=== PATIENT | female | born 1995 | race Caucasian/White ===

== ENCOUNTER 2024-02-08 01:47 | Inpatient (IN) | payer BC ==
[2024-02-08] VITALS (66 sets, daily range): BP systolic 72–186; BP diastolic 41–175; PULSE 61–104; TEMP 97–98.4
[~2024-02-08] VITALS: Ht 162.6 cm; Wt 83.6 kg
--- NOTE | 2024-02-08 02:00 | NUR ---
G2L1. 40-4. Wheeled to LDR 3 with spouse. Clean gown on. EFM and TOCO explained and applied. Pt states she has been kedar for the last 4 hours. Denies leaking of fluids or vaginal bleeding. Reports good movement. Pt states this is her second delivery and that she had a with her first. Pt states "I pushed for 5 hours with my last baby but she was bernie side up." Pt also reports that the baby was 9lbs and that she had to recieved 2 blood transfussions due to blood loss. Pt requesting TOLAC. Plan of care explained to pt. Pt verbalized her understanding. 0225: called and updated on pt's status. See physican notification. Order received. 0230: Pt updated on providers new orders. Pt okay with getting an epidural at this time. Educated pt on not recommending TOLAC but that she is willing to watch her and baby. Pt verbalized her understanding and wanting to continue with TOLAC at this time. 0250: IV started and labs obtained via IV site. LR bolus infusing without difficutly.
[2024-02-08] MEDS ORDERED: LR & Oxytocin 500 ML IV SCH (02:45)
[2024-02-08] MEDS ORDERED: LR 1,000 ML IV SCH (02:45)
[2024-02-08] MEDS ORDERED: IRON 27 MG PO (03:00)
[2024-02-08 03:19] LABS: BASO # 0.1 K/mm3 (0.0-0.2); BASO % 0.3 % (0.0-2.0); EOS # 0.2 K/mm3 (0.0-0.7); EOS % 1.2 % (0.0-4.0); GRAN % 74.9 % (42.2-75.2); LYMPH # 2.5 K/mm3 (1.2-3.4); LYMPH % 16.7 % (20.0-51.0); MEAN CELL VOLUME 85 fl (80.0-100.0); MEAN CORPUSCULAR HEMOGLOBIN 28 pg (27-31); MEAN CORPUSCULAR HGB CONC 34 g/dl (33.0-37.0); MEAN PLATELET VOLUME 11.2 fl (7.4-10.4); MONO # 0.9 K/mm3 (0.1-0.6); MONO % 6.2 % (1.7-9.3); PLATELET COUNT 227 K/mm3 (130-400); RED BLOOD COUNT 3.87 M/mm3 (4.10-5.30); REDCELL DISTRIBUTION WIDTH-CV 15.3 % (11.5-14.5)
[2024-02-08 03:20] LABS: HEMATOCRIT 32.7 % (37.0-47.0)
[2024-02-08] MEDS ORDERED: ROPivacaine PF 0.2% 200 ML IV ONE (03:44)
--- NOTE | 2024-02-08 03:45 | NUR ---
Hernesto VILLANUEVA at bedside for epidural placement. Pt assisted to edge of bed and procedure and risks explained by Hernseto VILLANUEVA. Difficulty tracing FHR due to maternal position. 0357: BP 85/82. Hernesto notified and aware. 0358: Test dose administered by Hernesto VILLANUEVA. See anesthesia records. 0405: Pt assisted to wedge right position per request. Plan of care and safety precautions explained to pt who verbalizes her understanding. Call light within reach.
[2024-02-08] MEDS ORDERED: Naloxone 0.4 MG/ML VIAL IV PRN ×2 (04:45→17:15)
[2024-02-08] MEDS ORDERED: diphenhydrAMINE 50 MG/ML 1 ML VIAL IV PRN (04:45)
[2024-02-08] MEDS ORDERED: ePHEDrine 50 MG/10 ML VIAL IV PRN (04:45)
[2024-02-08] MEDS ORDERED: Ondansetron 4 MG/2 ML VIAL IV PRN ×2 (04:45→17:15)
[2024-02-08] MEDS ORDERED: diphenhydrAMINE 25 MG CAP PO PRN (04:45)
--- NOTE | 2024-02-08 07:50 | NUR ---
THIS RN AT PT BEDSIDE WITNESSING CONSENT BEING SIGNED BY PT. RN ASKS PT "DO YOU HAVE ANY QUESTIONS?" TO WHICH PT REPONDS "NO I DONT THINK I HAVE ANY AT THIS TIME." THIS RN ADDS ,"IF YOU HAVE ANY QUESTIONS AT ANY TIME PLEASE ASK THEM, THERE ARE NO QUESTIONS THAT WE WON'T ANSWER, WHENEVER YOU WANT TO ASK PLEASE ASK." PT VERBALLY UNDERSTANDING AND AWAKE AND ALERT X3
--- NOTE | 2024-02-08 08:15 | NUR ---
UNABLE TO TRACE CONTRACTIONS ON TOCO MONITOR DUE TO MATERNAL POSITION AND HABITUS, THIS RN AT BEDSIDE ATTEMPTING TO TRACE AND PALPATE FOR CONTRACTIONS. PT VS STABLE, PT AWAKE AND ALERT X3
--- NOTE | 2024-02-08 09:49 | NUR ---
THIS RN AT PT BEDSIDE CHANGING PT POSITION. WHILE TURNING THIS RN OBSERVES GUSH OF CLEAR FLUID ONTO PT BED. SVE 6-7/80/-2 PER THIS RN, NOTIFIED. PT REPOSITIONED WEDGE RIGHT, PT VS STABLE, EFM CAT 1, PT AWAKE AND ALERT X3. PT SPOUSE AND MOTHER IN LAW SUPPORTIVE AT BEDSIDE.
--- NOTE | 2024-02-08 10:45 | NUR ---
UNABLE TO MONITOR IF DECELERATION HAPPENED DUE TO EFM POSITION PT MOVED POSITIONS, THIS RN AT PT BEDSIDE AND ATTACHED O2 SAT MONITOR TO DETECT MATERNAL HEART RATE. PT VS STABLE, PT AWAKE AND ALERT X3
--- NOTE | 2024-02-08 15:40 | NUR ---
1305 CHARGE NURSE LILLIAMANGEL SVE , THIS RN NOTIFIES . GIVES ORDERS TO START PUSHING AND CALL HER WHEN NEEDED. 1313 ROOM SET FOR VAGINAL DELIVERY, PT VS STABLE, EFM CAT 1, PT POSITIONED ON BACK AND BEGINS PUSHING. 1341 PT REQUEST TO CHANGE POSITIONS FOR PUSHING. PT REPOSITIONED ON LEFT SIDE AND CONTINUES TO PUSH WITH EACH CONTRACTION. AT PT BEDSIDE ASSESSING EFFECTIVE PUSHING. 1400 PT POSITIONED RIGHT SIDE AND CONTINUES TO PUSH. PT VS STABLE, OCCATIONAL AUDIBLE EARLY DECELERATIONS IN FHR HEARD PER THIS RN, FHR BASELINE 120'S WITH ADEQUATE ACCELS, MODERATE VARIABILITY PER MONITOR. 1415 PT PUSHING WITH KNEES TURNED INSIDE TOWARDS STOMACH. PT DESCRIBING INCREASING PAIN IN LEFT LOWER ABDOMEN RADIATING TO LEFT LOWER BACK. 1447 PT PUSHING ON LEFT SIDE AGAIN TO ATTEMPT TO HELP ELIVIATE LEFT SIDED PAIN, PT PUSHES EPIDURAL DOSE BUTTON. PT VS STABLE. 1500 PT PUSHING SUPINE POSITION WITH LEGS IN STIRRUPS AND MIRROR FOR PT TO LOOK AT PUSHING. AT PT BEDSIDE FOR SVE ASSESSING PUSHING PROGRESSION AND EFFECTIVENESS. PT VS STABLE, PT CONTINUES TO REPORT "INTENSE" LOWER LEFT SIDED PAIN. 1540 DISCUSSING FURTHER PLAN OF CARE OPTIONS OF CONTINUING TO PUSH OR REPEAT SECTION WITH PT AND PT SPOUSE. PT AND PT SPOUSE VERBALLY UNDERSTAND OPTIONS AND DECIDE ON REPEAT C/SECTION DUE TO ARREST OF DECENT. CHARGE NURSE, NURSERY NURSE, INGA SUPERVISOR MAPPING, AND CLINICAL MATERIAL HANDLER NOTIFIED OF C/SECTION DECISION. PT AND PT SPOUSE PREPARED FOR OPERATION 1545 PT TRANSFERED VIA BED TO OR. PT VS STABLE.
[2024-02-08] MEDS ORDERED: Chloroprocaine PF 3% (30 MG/ML) 20 ML VIAL ONE (15:47)
[2024-02-08] MEDS ORDERED: Azithromycin 500 MG in NS 250 ML IV ONE (16:00)
[2024-02-08] MEDS ORDERED: Ketorolac 30 MG/ML VIAL ONE (16:20)
[2024-02-08] MEDS ORDERED: dexAMETHasone 10 MG/ML VIAL ONE (16:20)
[2024-02-08] MEDS ORDERED: Ondansetron 4 MG/2 ML VIAL ONE (16:20)
[2024-02-08] MEDS ORDERED: Oxytocin 10 UNITS/ML VIAL ONE (16:20)
[2024-02-08] MEDS ORDERED: NS 20 ML IV ONE (16:20)
[2024-02-08] MEDS ORDERED: Measles/Mumps/Rubella Virus Vaccine Live w Diluent 0.5 ML VIAL SQ SCH (17:15)
[2024-02-08] MEDS ORDERED: LR 1,000 ML IV PRN (17:15)
[2024-02-08] MEDS ORDERED: Loratadine 10 MG TAB PO PRN (17:15)
[2024-02-08] MEDS ORDERED: Magnes Hydrox (MOM) 80 MG/ML 30 ML CUP PO PRN (17:15)
[2024-02-08] MEDS ORDERED: oxyCODONE/Acetaminophen 5-325 MG TAB PO PRN (17:15)
--- NOTE | 2024-02-08 17:20 | NUR ---
UNABLE TO TRACE ACCURATE PT BLOOD PRESSURE DUE TO PT SHAKING, THIS RN AT PT BEDSIDE OBSERVING PT AWAKE AND ALERT X3
[2024-02-08] MEDS ORDERED: traZODone 50 MG TAB PO PRN (21:00)
[2024-02-08] MEDS ORDERED: Ibuprofen 800 MG TAB PO SCH (23:06)
[2024-02-08] MEDS ORDERED: Methylergonovine 0.2 MG/ML 1 ML AMPUL IM PRN (23:45)
[2024-02-09] MEDS ORDERED: Rho(D) Imm Globulin 1,500 UNITS (300 MCG)/2 ML SYRINGE IV\\IM SCH (01:24)
[2024-02-09 03:00] VITALS: BP 95/55; PULSE 68; TEMP 98.7
[2024-02-09 07:15] VITALS: BP 100/63; PULSE 68; TEMP 98.4
[2024-02-09 07:27] LABS: BASO # 0.1 K/mm3 (0.0-0.2); BASO % 0.3 % (0.0-2.0); EOS % 0.1 % (0.0-4.0); GRAN # 16.9 K/mm3 (1.4-6.5); GRAN % 84.8 % (42.2-75.2); LYMPH # 1.7 K/mm3 (1.2-3.4); LYMPH % 8.5 % (20.0-51.0); MEAN CORPUSCULAR HGB CONC 34 g/dl (33.0-37.0); MEAN PLATELET VOLUME 10.8 fl (7.4-10.4); MONO # 1.1 K/mm3 (0.1-0.6); MONO % 5.5 % (1.7-9.3); PLATELET COUNT 232 K/mm3 (130-400); RED BLOOD COUNT 2.83 M/mm3 (4.10-5.30); REDCELL DISTRIBUTION WIDTH-CV 15.6 % (11.5-14.5)
[2024-02-09 07:28] LABS: HEMATOCRIT 24.2 % (37.0-47.0); HEMOGLOBIN 8.1 g/dl (12.5-16.0); MEAN CORPUSCULAR HEMOGLOBIN 29 pg (27-31)
[2024-02-09 07:29] LABS: MEAN CELL VOLUME 86 fl (80.0-100.0)
[2024-02-09 07:30] VITALS: BP 100/63; PULSE 68; TEMP 98.4
[2024-02-09] MEDS ORDERED: Sennosides/Docusate 8.6-50 MG TAB PO SCH (08:00)
[2024-02-09 16:00] VITALS: BP 97/56; PULSE 73; TEMP 98
[2024-02-09 19:49] VITALS: BP 103/55; PULSE 75; TEMP 98.3
[2024-02-10 06:06] LABS: MEAN CELL VOLUME 87 fl (80.0-100.0); MEAN CORPUSCULAR HGB CONC 33 g/dl (33.0-37.0); MEAN PLATELET VOLUME 10.5 fl (7.4-10.4); PLATELET COUNT 254 K/mm3 (130-400); RED BLOOD COUNT 2.87 M/mm3 (4.10-5.30); REDCELL DISTRIBUTION WIDTH-CV 15.6 % (11.5-14.5)
[2024-02-10 06:11] LABS: HEMATOCRIT 24.9 % (37.0-47.0); HEMOGLOBIN 8.1 g/dl (12.5-16.0); MEAN CORPUSCULAR HEMOGLOBIN 28 pg (27-31)
[2024-02-10 07:16] VITALS: BP 91/50; PULSE 73; TEMP 98
--- NOTE | 2024-02-10 09:44 | NUR ---
0730 RN BEDSIDE DISCUSSING POC WITH PT AND SPOUSE. PT VERBALIZES UNDERSTANDING AND EXPRESSED A DESIRE TO GO HOME TODAY.
--- NOTE | 2024-02-10 10:27 | NUR ---
Initial visit; Parents thanked Soldering Machine Tender for offering congratulations and God's blessings for the of their son. Soldering Machine Tender thanked family for choosing [facility] and noted that family were pleased with their experience with their stay.
[2024-02-10] MEDS ORDERED: IBU800 M1 PO (12:09)
--- NOTE | 2024-02-10 12:38 | NUR ---
Pt given both written and verbal discharge instructions. Pt encouraged to keep all previously scheduled follow up appointments. Pt verbalized understanding and has no questions or concerns at this time.
== END 2024-02-10 12:55 | disposition home or self-care (01) | DRG 787 ==
LOC: LDRO 01:47 → LDR 02:41 → OB 17:45
PROVIDERS: Obstetrics & Gynecology; Student in an Organized Health Care Education/Training Program; ADMIT Obstetrics & Gynecology
PROC: 10D00Z1 Extraction of Products of Conception, Low, Open Approach (ICD-10-PCS; principal; 2024-02-08)
DX: O48.0 Post-term pregnancy (principal); D62 Acute posthemorrhagic anemia; O33.0 Maternal care for disproportion due to deformity of maternal pelvic bones; Z3A.40 40 weeks gestation of pregnancy; Z37.0 Single live birth; O99.02 Anemia complicating childbirth; O34.211 Maternal care for low transverse scar from previous cesarean delivery; O62.1 Secondary uterine inertia; O26.893 Other specified pregnancy related conditions, third trimester; Z67.41 Type O blood, Rh negative
CPT/HCPCS: J0665; J0690; J1100; J1885; J2401; J2405; J2590; J2791; J2795; J7120